=== PATIENT | female | born 1960 | race Two or more races ===

== ENCOUNTER 2021-02-12 11:15 | Inpatient (IN) | payer OTHER ==
[~2021-02-12] VITALS: Ht 162.6 cm; Wt 83.5 kg
[2021-02-12] MEDS ORDERED: COZAAR100 MG PO (13:22)
[2021-02-12] MEDS ORDERED: AMLODIP PO (13:23)
[2021-02-12] MEDS ORDERED: TIROSINT75 MCG PO (13:24)
[2021-02-12] MEDS ORDERED: TIROSINT50 MCG PO (13:25)
[2021-02-12] MEDS ORDERED: VOLTAREN PO (13:26)
[2021-02-12] MEDS ORDERED: HORIZANT600 MG PO (13:26)
[2021-02-12] MEDS ORDERED: VITAMIN D (13:27)
[2021-02-12] MEDS ORDERED: ZETIA10 MG PO (13:27)
[2021-02-12] MEDS ORDERED: FENOFI PO (13:27)
[2021-02-18] MEDS ORDERED: METHOTREXATE2.5 MG (09:14)
[2021-02-18] MEDS ORDERED: AMLODIPINE BESYL5 MG (09:14)
[2021-02-18] MEDS ORDERED: FENOFIBRIC ACID45 MG (09:14)
[2021-02-18] MEDS ORDERED: GABAPENTIN600 MG (09:15)
[2021-02-18] MEDS ORDERED: DICLOFENAC SODI50 MG (09:15)
[2021-02-18] MEDS ORDERED: CLOBETASOL PROP15 GM (09:15)
[2021-02-18] MEDS ORDERED: FOLIC ACID1 MG (09:15)
[2021-02-18] MEDS ORDERED: LANSOPRAZOLE30 MG (09:15)
== END 2021-02-19 16:41 | DRG 470 ==
LOC: O/R 02-17 05:55 → SURG 02-17 05:55 → SURH 02-17 10:45 → SURG 02-17 11:18
PROVIDERS: ADMIT Orthopaedic Surgery; ATTEND Orthopaedic Surgery
PROC: 0SRD0J9 Replacement of Left Knee Joint with Synthetic Substitute, Cemented, Open Approach (ICD-10-PCS; principal; 2021-02-17 10:45)
DX: M17.12 Unilateral primary osteoarthritis, left knee (principal); D62 Acute posthemorrhagic anemia; I10 Essential (primary) hypertension; Z53.29 Procedure and treatment not carried out because of patient's decision for other reasons

== ENCOUNTER 2022-01-11 09:12 | Inpatient (IN) | payer OTHER ==
[~2022-01-11] VITALS: Ht 162.6 cm; Wt 80.7 kg
[~2022-01-11 09:12] MED LIST: AMLODIP PO; AMLODIPINE BESYL5 MG; CLOBETASOL PROP15 GM; COZAAR100 MG PO; DICLOFENAC SODI50 MG; FENOFI PO; FENOFIBRIC ACID45 MG; FOLIC ACID1 MG; GABAPENTIN600 MG; HORIZANT600 MG PO; LANSOPRAZOLE30 MG; METHOTREXATE2.5 MG; TIROSINT50 MCG PO; TIROSINT75 MCG PO; VITAMIN D; VOLTAREN PO; ZETIA10 MG PO
[2022-01-13] MEDS ORDERED: DICLOFENAC SOD100 G1 (08:09)
[2022-01-13] MEDS ORDERED: TRAMADOL HCL50 MG (08:09)
== END 2022-01-14 14:58 | DRG 470 ==
LOC: O/R 01-12 05:30 → SURG 01-12 10:20
PROVIDERS: ADMIT Orthopaedic Surgery; ATTEND Orthopaedic Surgery
PROC: 0SRC0J9 Replacement of Right Knee Joint with Synthetic Substitute, Cemented, Open Approach (ICD-10-PCS; principal; 2022-01-12 14:00)
DX: M17.11 Unilateral primary osteoarthritis, right knee (principal); D62 Acute posthemorrhagic anemia; M35.00 Sjogren syndrome, unspecified; Z20.822 Contact with and (suspected) exposure to COVID-19